=== PATIENT | female | born 1950 | race Caucasian/White ===

== ENCOUNTER 2024-07-18 12:42 | Emergency (ER) | payer MEDICARE ==
[~2024-07-18] VITALS: Ht 154.9 cm; Wt 103.1 kg
[2024-07-18] MEDS ORDERED: LEVETIRACETAM500 MG PO (12:59)
[2024-07-18] MEDS ORDERED: ATORVASTATIN CA10 M1 PO (12:59)
[2024-07-18] MEDS ORDERED: GABAPENTIN100 M2 PO (12:59)
[2024-07-18] MEDS ORDERED: SERTRALINE HYDR50 MG PO (13:00)
[2024-07-18] MEDS ORDERED: Acetaminophen/Hydrocodone 5 MG/325 MG TABLET PO ONE (13:05)
== END 2024-07-18 14:28 | disposition home or self-care (01) ==
LOC: ED 12:42
DX: S83.91XA Sprain of unspecified site of right knee, initial encounter (principal); W01.198A Fall on same level from slipping, tripping and stumbling with subsequent striking against other object, initial encounter; Y93.89 Activity, other specified; Y92.009 Unspecified place in unspecified non-institutional (private) residence as the place of occurrence of the external cause; Y99.8 Other external cause status